=== PATIENT | male | born 1975 | race African-American/Black ===

== ENCOUNTER 2022-12-06 03:03 | Emergency (ER) | payer MEDICAID ==
[~2022-12-06] VITALS: Ht 167.6 cm; Wt 80.3 kg
[2022-12-06 03:13] VITALS: BP 142/95
[2022-12-06 10:37] LABS: CLARITY URINE CLEAR (CLEAR); COLOR URINE YELLOW (YELLOW); KETONES URINE NEGATIVE (NEGATIVE); LEUKOCYTE ESTERASE URINE TRACE (NEGATIVE); NITRITE URINE NEGATIVE (NEGATIVE); OCCULT BLOOD URINE NEGATIVE (NEGATIVE); PROTEIN URINE NEGATIVE (NEGATIVE); SPECIFIC GRAVITY URINE 1.013 (1.005-1.030)
[2022-12-06] MEDS ORDERED: CEPH500C2 PO (11:02)
== END 2022-12-06 12:04 | disposition left against medical advice (07) ==
LOC: ER 03:03
DX: N39.0 Urinary tract infection, site not specified (principal)
CPT/HCPCS: 81003; 99283